=== PATIENT | female | born 2000 | race Caucasian/White ===

== ENCOUNTER 2021-06-22 04:00 | Inpatient (IN) ==
[2021-06-22] MEDS ORDERED: Ondansetron 4 MG/2 ML VIAL IVP PRN (04:08)
[2021-06-22] MEDS ORDERED: Penicillin G Potassium 5,000,000 UNIT in 0.9 % Sodium Chloride Mini Bag 100 ML IVPB ONE (04:08)
[2021-06-22] MEDS ORDERED: Naloxone 0.4 MG/ML INJ IVP PRN (04:08)
[2021-06-22] MEDS ORDERED: miSOPROStoL 25 MCG TABLET PO PRN (04:08)
[2021-06-22] MEDS ORDERED: Metoclopramide 10 MG/2 ML VIAL IVP PRN (04:08)
[2021-06-22] MEDS ORDERED: Lidocaine 1% 20 ML MDV INFILT PRN (04:08)
[2021-06-22] MEDS ORDERED: Famotidine 20 MG/2 ML VIAL IVP PRN (04:08)
[2021-06-22] MEDS ORDERED: *HR* Nalbuphine 10 MG/ML AMPUL IV PRN (04:08)
[2021-06-22] MEDS ORDERED: Oxytocin 20 units/ LR 1000 mL 20 UNIT/1,000 ML BAG IVC SCH (04:15)
[2021-06-22 04:50] LABS: Amphetamine Screen,Urine Negative ng/mL (Cutoff=1000); Barbiturate Screen,Urine Negative ng/mL (Cutoff=200); Basophils % 0.2 %; Benzodiazepines Screen,Urine Negative ng/mL (Cutoff=200); Cannabinoid Screen,Urine Negative ng/mL (Cutoff = 50); Cocaine Screen,Urine Negative ng/mL (Cutoff= 300); Hematocrit 34.4 % (35.3-44.9); Hemoglobin 11.4 g/dL (11.5-15.4); Mean Corpuscular HGB Conc 33.1 g/dL (31.6-35.5); Mean Platelet Volume 13.8 fL (9.4-12.4); Opiate Screen,Urine Negative ng/mL (Cutoff=300); Phencyclidine Screen,Urine Negative ng/mL (Cutoff=25); Red Cell Distribution Width 13.3 % (11.5-14.5)
[2021-06-22] MEDS: Ringers Solution, Lactated 1,000 ML IVC SCH ×3 (04:52→22:33)
[2021-06-22 04:53] LABS: Eosinophils # 0.1 K/mcL (0.0-0.6); Eosinophils % 1.5 %; Immature Granulocytes % 0.3 % (0-4); Immature Platelets 18.7 % (1.1-6.1); Lymphocytes # 1.7 K/mcL (0.6-4.6); Lymphocytes % 18.6 %; Mean Corpuscular Hemoglobin 29.1 pg (28.0-33.3); Mean Corpuscular Volume 87.8 fL (83.0-100.0); Platelet Count 139 K/mcL (140-400); Red Blood Count 3.92 M/mcL (3.82-4.97); Segmented Neutrophils % 71.4 %; White Blood Count 9.3 K/mcL (4.3-11.1)
[2021-06-22 05:13] LABS: Monocytes # 0.7 K/mcL (0.0-1.3); Neutrophils # 6.6 K/mcL (1.6-8.9)
[2021-06-22 05:21] LABS: Influenza A PCR Negative (Negative); Influenza B PCR Negative (Negative); Resp. Syncytial Virus PCR Negative (Negative)
[2021-06-22 05:52] LABS: SARS-CoV-2 by PCR (In House) Negative (Negative)
[2021-06-22] MEDS ORDERED: EPHEDrine 50 MG/ML VIAL IVP PRN (06:55)
[2021-06-22] MEDS: Penicillin G Potassium 2,500,000 UNIT/105 ML MLS IVPB SCH ×4 (08:53→22:33)
[2021-06-22] MEDS: Epidural Premix (fent/bupiv) 110 ML EP SCH ×2 (13:38→19:26)
[2021-06-23] MEDS ORDERED: Rho Immune Globulin 1,500 UNIT SYRINGE IM PRN (03:39)
[2021-06-23] MEDS ORDERED: Lanolin 7 G OINT...G. TP PRN (03:39)
[2021-06-23] MEDS ORDERED: Ondansetron ODT 4 MG TAB.RAPDIS SL PRN (03:39)
[2021-06-23] MEDS ORDERED: Benzocaine/Menthol 56 GM AEROSOL SPRAY TP PRN (03:39)
[2021-06-23] MEDS ORDERED: Oxytocin 20 units/ LR 1000 mL 20 UNIT/1,000 ML BAG IVC SCH (03:39)
[2021-06-23] MEDS: Acetaminophen 325 MG TABLET PO SCH ×3 (04:27→20:28)
[2021-06-23] MEDS: Ibuprofen 600 MG TABLET PO SCH ×3 (04:27→20:29)
[2021-06-23] MEDS: Prenatal Vit/FA 1 EACH TABLET PO SCH (09:22)
[2021-06-24] MEDS: Acetaminophen 325 MG TABLET PO SCH (06:30)
[2021-06-24] MEDS: Ibuprofen 600 MG TABLET PO SCH ×2 (06:30→08:11)
[2021-06-24] MEDS: Prenatal Vit/FA 1 EACH TABLET PO SCH (08:11)
[2021-06-24 09:14] VITALS: BP 136/66; PULSE 70; TEMP 97.9; O2SAT 96
== END 2021-06-24 14:30 | disposition home or self-care (01) | DRG 542 ==
LOC: 1NENULAB 04:01 → 1NENUOBS 06-23 03:42
PROVIDERS: ADMIT Advanced Practice Midwife; ATTEND Advanced Practice Midwife